=== PATIENT | female | born 1960 | race Caucasian/White ===

== ENCOUNTER 2021-12-25 16:03 | Emergency (ER) | payer OTHER ==
[2021-12-25] MEDS ORDERED: Sodium Chloride 0.9% 10 ML Syringe FLUSH PRN (17:07)
[2021-12-25] MEDS ORDERED: Alum Hydrox/Mag Hydrox/Simeth 30 ML, Lidocaine 2% 15 ML PO ONE ×2 (17:48)
[2021-12-25] MEDS ORDERED: Aspirin 81 MG Tab.Chew PO ONE (17:48)
[2021-12-25] MEDS ORDERED: Iopamidol 755 Mg/ML 100 ML Bottle IVPUSH ONE (19:48)
[2021-12-25] MEDS ORDERED: Sodium Chloride 0.9% 100 ML IV SCH (20:00)
== END 2021-12-25 22:33 | disposition home or self-care (01) ==
LOC: JD.ED 16:03
DX: K83.8 Other specified diseases of biliary tract (principal); R94.5 Abnormal results of liver function studies; E78.00 Pure hypercholesterolemia, unspecified; I10 Essential (primary) hypertension; E11.9 Type 2 diabetes mellitus without complications; E03.9 Hypothyroidism, unspecified; Z87.891 Personal history of nicotine dependence
CPT/HCPCS: 36415; 71046; 71275; 76705; 80053; 82977; 83690; 83735; 83880; 84484; 85007; 85027; 85379; 85610; 85730; 86140; 93005; 96360; 99285; A9270; J3490; Q9967; 93010; 99284

== ENCOUNTER 2021-12-26 11:54 | Emergency (ER) | payer OTHER ==
[2021-12-26] MEDS ORDERED: Sodium Chloride 0.9% 10 ML Syringe FLUSH PRN (12:14)
[2021-12-26] MEDS ORDERED: cefTRIAXone 2 GM in Sodium Chloride 0.9% 100 ML IV ONE (12:15)
[2021-12-26 13:08] LABS: ESTIMATED GFR 74 mL/min (>60)
== END 2021-12-26 14:20 | disposition home or self-care (01) ==
LOC: JD.ED 11:54
DX: K80.20 Calculus of gallbladder without cholecystitis without obstruction (principal); K80.50 Calculus of bile duct without cholangitis or cholecystitis without obstruction; I10 Essential (primary) hypertension; E11.9 Type 2 diabetes mellitus without complications; Z87.891 Personal history of nicotine dependence
CPT/HCPCS: 36415; 80053; 85025; 86140; 96365; 99284; J0696; J3490